=== PATIENT | female | born 1990 | race Caucasian/White ===

== ENCOUNTER → 2016-11-26 11:13 | Outpatient (CLI) | payer BC, OTHER ==
[~2016-11-26 11:13] MED LIST: IBUPROFEN600 MG PO; PERCOCET 5-3251 TAB PO; PRENATAL LOW IR1 TAB PO
[2016-12-08 06:10] VITALS: BMI 25.3
== END | disposition home or self-care (01) ==
LOC: D.LDO 11:13
DX: O36.5930 Maternal care for other known or suspected poor fetal growth, third trimester, not applicable or unspecified (principal); Z3A.35 35 weeks gestation of pregnancy

== ENCOUNTER → 2016-11-30 11:12 | Outpatient (CLI) | payer BC, OTHER ==
[2016-12-08 06:10] VITALS: BMI 25.3
== END | disposition home or self-care (01) ==
LOC: D.LDO 11:12
DX: O36.5930 Maternal care for other known or suspected poor fetal growth, third trimester, not applicable or unspecified (principal); Z3A.35 35 weeks gestation of pregnancy

== ENCOUNTER → 2016-12-03 13:19 | Outpatient (CLI) | payer BC, OTHER ==
[2016-12-08 06:10] VITALS: BMI 25.3
== END | disposition home or self-care (01) ==
LOC: D.LDO 13:19
DX: O36.5930 Maternal care for other known or suspected poor fetal growth, third trimester, not applicable or unspecified (principal); Z3A.36 36 weeks gestation of pregnancy

== ENCOUNTER 2016-12-08 05:00 | Inpatient (IN) | payer BC, OTHER ==
[~2016-12-08] VITALS: Ht 157.5 cm; Wt 62.6 kg
[~2016-12-08 05:00] MED LIST changes: -IBUPROFEN600 MG PO; -PERCOCET 5-3251 TAB PO
[2016-12-08 06:05] LABS: HEMATOCRIT 32.1 % (36.0-48.0); HEMOGLOBIN 11.1 g/dL (12-16); MCH 31.5 pg (26.0-34.0); MCHC 34.6 g/dL (31.0-37.0); MCV 91.2 fL (80.0-100.0); MEAN PLATELET VOLUME 10.8 fL (7.4-10.4); RBC 3.52 10x6/uL (4.00-5.40); RDW 12.8 % (11.5-14.5); WBC 8.6 10x3/uL (4.8-10.8)
[2016-12-08 06:10] VITALS: BP 127/75; Ht 157.5 cm; Wt 62.6 kg
[2016-12-08 06:27] LABS: UDS - AMPHET NEGATIVE QUAL (NEGATIVE); UDS - BARB NEGATIVE QUAL (NEGATIVE); UDS - BENZO NEGATIVE QUAL (NEGATIVE); UDS - COCAINE NEGATIVE QUAL (NEGATIVE); UDS - METH NEGATIVE QUAL (NEGATIVE); UDS - OPIATE NEGATIVE QUAL (NEGATIVE); UDS - PCP NEGATIVE QUAL (NEGATIVE); UDS - THC NEGATIVE QUAL (NEGATIVE)
[2016-12-08 06:49] LABS: APPEARANCE HAZY (CLEAR); COLOR YELLOW (YELLOW); GLUCOSE NEGATIVE (NEGATIVE); KETONE NEGATIVE (NEGATIVE); LEUKOCYTE ESTERASE 2+ (NEGATIVE); NITRITE NEGATIVE (NEGATIVE); PROTEIN TRACE mg/dL (NEGATIVE); SPECIFIC GRAVITY 1.015 (1.005-1.020)
[2016-12-08 06:50] LABS: AMORPHOUS SEDIMENT <1+ /lpf (NONE SEEN); BACTERIA MODERATE /hpf (NONE SEEN); BILIRUBIN NEGATIVE (NEGATIVE); UROBILINOGEN NORMAL (NORMAL)
--- NOTE | 2016-12-08 18:19 | NUR ---
PT AMBULATORY IN ROOM. STATES HAS VOIDED 3X TOTAL SINCE DELIVERY. DENIES HEAVY BLEEDING OR PASSING CLOTS. DENIES NEEDS OR C/O.
--- NOTE | 2016-12-08 19:30 | NUR ---
PM ROUNDS MADE, PT OUT OF ROOM AT THIS TIME
[2016-12-08 20:00] VITALS: BP 129/83
--- NOTE | 2016-12-08 20:00 | NUR ---
ASSESSMENT PER FLOW SHEET. VITAL SIGNS OBTAINED. SALINE LOCK TO LEFT WRIST WITH NO REDNESS OR EDEMA. PATIENT IS SITTING UP IN BED. BOWEL SOUNDS AUSCULATED IN ALL 4 QUADRANTS. FF U/1. PATENT STATES PAIN IS A 4 ON NUMERIC SCALE. HOLDING ABOUT TO NURSE. MOTHER HAS NO NEEDS AT THIS TIME VERBALIZED.
--- NOTE | 2016-12-08 21:26 | NUR ---
PT HOLDING BABY, ADM 2100 MEDS PO PER MD ORDERS, SEE EMAR, PT C/O PAIN, ADM PERCOCET PO PER MD ORDERS WITH BRANDEN CORRAL, ICE PROVIDED FOR DR KIM, PT DENIES FURTHER NEEDS
--- NOTE | 2016-12-08 22:20 | NUR ---
WENT INTO THE ROOM TO CHECK ON PATIENT- SHE STATES HER PAIN IS A 0. PATIENT AND AND FOB SITTING TOGETHER ON BED. NO NEEDS VOICED AT THIS TIME.
--- NOTE | 2016-12-09 00:09 | NUR ---
CHECKED IN ON PATIENT. PATIENT AWAKE BUT RESTING IN BED. FOB RESTING ON COUCH AT BEDSIDE. IS IN OPEN CRIB. PATIENT HAS NO NEEDS AT THIS TIME. STATES SHE HAS NO PAIN.
--- NOTE | 2016-12-09 02:30 | NUR ---
PT RESTING WITH EYES CLOSED, RESP QUIET, NO DISTRESS NOTED, LEFT UNDISTURBED AT THIS TIME, FOB ASLEEP ON COUCH
--- NOTE | 2016-12-09 03:32 | NUR ---
PT SITTING UP IN BED HOLDING BABY, DENIES NEEDS OR PAIN AT THIS TIME, FOB SITTING ON SIDE OF BED WITH PT
--- NOTE | 2016-12-09 05:33 | NUR ---
PT HOLDING BABY, FOB LAYING IN BED WITH PT, PT DENIES NEEDS OR PAIN AT THIS TIME
--- NOTE | 2016-12-09 05:44 | NUR ---
LAB TO ROOM FOR AM BLOOD DRAW
[2016-12-09 06:25] LABS: BASOPHILS 0.2 % (0.0-2.0); EOSINOPHILS 1.3 % (0-7); HEMATOCRIT 29.3 % (36.0-48.0); HEMOGLOBIN 10.3 g/dL (12-16); IMMATURE GRANULOCYTES 0.7 % (0-5); LYMPHOCYTES 28.4 % (15-50); MCHC 35.2 g/dL (31.0-37.0); MEAN PLATELET VOLUME 10.7 fL (7.4-10.4); MONOCYTES 10.9 % (2-11); NEUTROPHILS 58.5 % (40-80); PLATELET COUNT 165 10x3/uL (130-400); RBC 3.22 10x6/uL (4.00-5.40); RDW 12.6 % (11.5-14.5); WBC 8.9 10x3/uL (4.8-10.8)
--- NOTE | 2016-12-09 06:42 | NUR ---
SHIFT REPORT TO RHONDA SAMAYOA RN
--- NOTE | 2016-12-09 07:26 | NUR ---
PT IS SITTING UP IN BED. AND BABY AT BEDSIDE. PT OFFERS NO COMPLAINTS. STATES THAT SHE IS NOT HAVING ANY PAIN. GEN- AWAKE AND ALERT, VSS. LUNGS- CLEAR. HEART- RRR. ABD- SOFT, WITH TENDERNESS, FUNDUS FIRM. LOCIA RUBRA HAS BEEN MODERATE. EXT- NO EDEMA. SIDE RAILS UP X E, BED IS LOW AND CALL LIGHT IS IN REACH.
[2016-12-09 07:27] LABS: RAPID PLASMA REAGIN Non Reactive (Non Reactive)
[2016-12-09 07:32] VITALS: BP 130/82
--- NOTE | 2016-12-09 08:17 | NUR ---
PT AND ARE BOTH SLEEPING. BED IS LOW, SIDE RAILS UP X 2, AND CALL LIGHT IN REACH.
--- NOTE | 2016-12-09 08:20 | NUR ---
Monica Lima 12/09/16 LE@ 8:04 O: Patient and FOB in bed appear to be sleeping. at bedside in crib. Didn't wake upon entering room, left undisturbed. Will follow up at another time. Radha Wolfe, CLC
[2016-12-09] MEDS ORDERED: PERCOCET 5-3251 TAB PO (08:25)
[2016-12-09] MEDS ORDERED: IBUPROFEN600 MG PO (08:25)
--- NOTE | 2016-12-09 09:30 | NUR ---
PT OFFERS NO COMPLAINTS. HAS BEEN SLEEPING. NO COMPLAINTS. BED IS LOW, CALL LIGHT IN REACH AND SIDE RAILS UP X 2.
--- NOTE | 2016-12-09 10:40 | NUR ---
WENT TO CHECK ON PT. SHE IS NOT IN HER ROOM.
--- NOTE | 2016-12-09 11:00 | NUR ---
DR DOE, MACHINE [employer] SE[employer]ER IS HERE TO SEE PT. SHE IS NOT IN HER ROOM.
--- NOTE | 2016-12-09 11:26 | NUR ---
PT HAS RETURNED TO HER ROOM. DR DOE VISITING WITH PT. DR DOE STATES THAT THE BABY IS NOT BEING DISCHARGED. WILL OFFER MOTHER ROOMING IN [facility] BABY IS NOT BEING DISCHARGED.
[2016-12-09 12:26] VITALS: BP 141/77
--- NOTE | 2016-12-09 13:45 | NUR ---
GUILLAUME Carrillo'CD. TIP INTACT. DISCHARGE INSTRUCTIONS GIVEN. FU APPT AND PRESCRIPTIONS GIVEN. PT WAS MOVED TO ROOM 1220 TO ROOM IN.
== END 2016-12-09 13:45 | disposition home or self-care (01) | DRG 775 ==
LOC: D.SDCHOLD 05:00 → D.LD 05:06
PROVIDERS: ADMIT Specialist
PROC: 10E0XZZ Delivery of Products of Conception, External Approach (ICD-10-PCS; principal; 2016-12-08)
DX: O36.5930 Maternal care for other known or suspected poor fetal growth, third trimester, not applicable or unspecified (principal); O99.324 Drug use complicating childbirth; Z3A.37 37 weeks gestation of pregnancy; Z37.0 Single live birth; F12.90 Cannabis use, unspecified, uncomplicated; O99.334 Smoking (tobacco) complicating childbirth; O09.33 Supervision of pregnancy with insufficient antenatal care, third trimester